=== PATIENT | male | born 2000 | race Caucasian/White ===

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

== ENCOUNTER 2021-01-15 08:35 | Emergency (ER) | payer MEDICAID, SELFPAY ==
[2021-01-15] MEDS ORDERED: Ketorolac Tromethamine 30 MG/ML VIAL ONE (09:23)
[2021-01-15] MEDS ORDERED: Ondansetron PF 4 MG/2 ML Vial ONE (09:23)
[2021-01-15] MEDS ORDERED: Sodium Chloride 0.9% 1,000 ML ONE (09:23)
[2021-01-15 09:47] LABS: #Basophils 0.1 thou/uL (0.0-0.2); #Eosinphils 0.3 thou/uL (0.0-0.7); #Lymphocytes 2.2 thou/uL (1.20-3.40); #Monocytes 0.5 thou/uL (0.11-0.59); #Neutrophils 2.6 thou/uL (1.40-6.50); %Basophils 2.3 % (0.0-1.0); %Eosinophils 5.8 % (0.0-10.0); %Lymphocytes 38.1 % (21.0-51.0); %Monocytes 8.9 % (0.0-10.0); %Neutrophils 44.9 % (42.0-75.0); Hemoglobin 16.2 g/dL (14.0-18.0); Mean Corpuscular HGB CONC 32.4 g/dL (32.0-36.0); Mean Corpuscular Hemoglobin 30.8 pg (27.0-31.0); Mean Corpuscular Volume 95.1 fL (78.0-98.0); Mean Platelet Volume 6.4 fL (7.4-10.4); Platelet Count 244 thou/uL (130-400); RBC Distribution Width 11.8 % (11.5-14.5); Red Blood Cell (RBC) Count 5.25 mill/uL (4.70-6.10); White Blood Cell (WBC) Count 5.7 thou/uL (4.8-10.8)
[2021-01-15 10:05] LABS: ALT (SGPT) 26 U/L (8-55); AST (SGOT) 18 U/L (5-34); Albumin 4.4 g/dL (3.5-5.0); Alkaline Phosphatase 62 U/L (40-110); Anion Gap 15 mmol/L (10-20); BUN (Urea Nitrogen) 23 mg/dL (8.9-20.6); Bilirubin, Total 0.8 mg/dL (0.2-1.2); Calc. Creatinine Clearance 0 mL/min (70-130); Calcium 9.3 mg/dL (7.8-10.44); Carbon Dioxide 22 mmol/L (22-29); Chloride 106 mmol/L (98-107); Globulin 2.7 g/dL (2.4-3.5); Glucose 95 mg/dL (70-105); Lipase 15 U/L (8-78); Potassium 4.2 mmol/L (3.5-5.1); Protein, Total 7.1 g/dL (6.0-8.3); Sodium 139 mmol/L (136-145)
== END 2021-01-15 10:25 | disposition home or self-care (01) ==
LOC: MADERS 08:35
DX: R11.2 Nausea with vomiting, unspecified (principal); E86.0 Dehydration; F17.210 Nicotine dependence, cigarettes, uncomplicated
CPT/HCPCS: 80053; 83690; 85025; 96374; 96375; J1885; J2405; J7050

== ENCOUNTER 2022-05-03 15:38 | Emergency (ER) | payer SELFPAY | END 2022-05-03 16:45 | disposition home or self-care (01) | LOC: MADERS 15:38 | DX: S43.401A Unspecified sprain of right shoulder joint, initial encounter (principal); F17.210 Nicotine dependence, cigarettes, uncomplicated; X50.0XXA Overexertion from strenuous movement or load, initial encounter; Y99.0 Civilian activity done for income or pay ==

== ENCOUNTER 2022-09-28 18:55 | Emergency (ER) | payer SELFPAY ==
[2022-09-28] MEDS ORDERED: Ibuprofen 800 MG TAB ONE (19:49)
== END 2022-09-28 19:58 | disposition home or self-care (01) ==
LOC: MADERS 18:55
DX: R05.9 Cough, unspecified (principal); M79.10 Myalgia, unspecified site; R53.1 Weakness; Z20.822 Contact with and (suspected) exposure to COVID-19
CPT/HCPCS: 87804; 99283; U0003; U0005

== ENCOUNTER 2023-03-13 12:17 | Emergency (ER) | payer SELFPAY | END 2023-03-13 13:15 | disposition home or self-care (01) | LOC: MADERS 12:17 | DX: S23.41XA Sprain of ribs, initial encounter (principal); F17.210 Nicotine dependence, cigarettes, uncomplicated; W17.89XA Other fall from one level to another, initial encounter; Y93.01 Activity, walking, marching and hiking; Y92.009 Unspecified place in unspecified non-institutional (private) residence as the place of occurrence of the external cause ==

== ENCOUNTER 2023-09-07 14:21 | Emergency (ER) | payer OTHER, SELFPAY ==
[2023-09-07] MEDS ORDERED: Ibuprofen 800 MG TAB ONE (16:52)
== END 2023-09-07 17:00 | disposition home or self-care (01) ==
LOC: MADERS 14:21
DX: S60.222A Contusion of left hand, initial encounter (principal); F17.210 Nicotine dependence, cigarettes, uncomplicated; W23.0XXA Caught, crushed, jammed, or pinched between moving objects, initial encounter

== ENCOUNTER 2024-08-10 02:21 | Emergency (ER) | payer OTHER, SELFPAY ==
[2024-08-10] MEDS ORDERED: Ibuprofen 200 MG TAB ONE (02:45)
[2024-08-10] MEDS ORDERED: Acetaminophen 325 MG TAB ONE (02:45)
== END 2024-08-10 02:58 ==
LOC: MADERS 02:21
DX: M79.641 Pain in right hand (principal); F17.210 Nicotine dependence, cigarettes, uncomplicated
CPT/HCPCS: 99283

== ENCOUNTER 2025-07-18 23:42 | Emergency (ER) | payer SELFPAY | END 2025-07-19 00:31 | disposition home or self-care (01) | LOC: MADERS 23:42 | DX: S83.91XA Sprain of unspecified site of right knee, initial encounter (principal); F17.210 Nicotine dependence, cigarettes, uncomplicated; W18.42XA Slipping, tripping and stumbling without falling due to stepping into hole or opening, initial encounter | CPT/HCPCS: 99283 ==

== ENCOUNTER 2025-07-31 03:37 | Emergency (ER) | payer OTHER, SELFPAY ==
[2025-07-31] MEDS ORDERED: Acetaminophen 500 MG TAB ONE (03:53)
[2025-07-31] MEDS ORDERED: Ibuprofen 800 MG TAB ONE (04:03)
== END 2025-07-31 04:22 ==
LOC: EEVIPCON 03:37 → MADERS 03:37
DX: S83.91XA Sprain of unspecified site of right knee, initial encounter (principal); F17.210 Nicotine dependence, cigarettes, uncomplicated; X50.1XXA Overexertion from prolonged static or awkward postures, initial encounter
CPT/HCPCS: 99283